=== PATIENT | female | born 1950 | race Caucasian/White ===

== ENCOUNTER 2020-12-17 08:35 | Outpatient (REF) | payer OTHER, SELFPAY ==
--- NOTE | ~2020-12-17 | XR_ITS ---
EXAMINATION: XR SHOULDER, RIGHT XR SHOULDER, LEFT CLINICAL INFORMATION: Shoulder pain COMPARISON: None TECHNIQUE: Each shoulder is imaged in 4 views. There are a total of 8 views. FINDINGS: Right: Normal bony mineralization. No fracture, dislocation, or destructive process. The glenohumeral joint appears normal. There is no visible rotator cuff calcification. There are degenerative changes acromioclavicular joint with joint narrowing and benign mineralization superior side joint capsule. No erosive change. Acromioclavicular alignment normal. There is small spur superior lateral acromium. Degenerative changes are also noted lower cervical spine, greater on right. Left: Normal bony mineralization. No fracture, dislocation, or destructive process. The glenohumeral joint appears normal. There is no visible rotator cuff calcification. There are degenerative changes acromioclavicular joint with joint narrowing and benign mineralization superior side joint capsule. No erosive change. Acromioclavicular alignment normal. There is borderline spur superior lateral acromium. XR/XR shoulder LT min 2V IMPRESSION: 1. Bilateral acromioclavicular osteoarthritic changes, greater on right. 2. Benign-appearing bilateral chondrocalcinosis superior acromioclavicular joint capsule. No erosive change. 3. Normal bilateral glenohumeral joints. 4. No visible rotator cuff calcifications.
--- NOTE | ~2020-12-17 | XR_ITS ---
EXAMINATION: XR SHOULDER, RIGHT XR SHOULDER, LEFT CLINICAL INFORMATION: Shoulder pain COMPARISON: None TECHNIQUE: Each shoulder is imaged in 4 views. There are a total of 8 views. FINDINGS: Right: Normal bony mineralization. No fracture, dislocation, or destructive process. The glenohumeral joint appears normal. There is no visible rotator cuff calcification. There are degenerative changes acromioclavicular joint with joint narrowing and benign mineralization superior side joint capsule. No erosive change. Acromioclavicular alignment normal. There is small spur superior lateral acromium. Degenerative changes are also noted lower cervical spine, greater on right. Left: Normal bony mineralization. No fracture, dislocation, or destructive process. The glenohumeral joint appears normal. There is no visible rotator cuff calcification. There are degenerative changes acromioclavicular joint with joint narrowing and benign mineralization superior side joint capsule. No erosive change. Acromioclavicular alignment normal. There is borderline spur superior lateral acromium. XR/XR shoulder RT min 2V IMPRESSION: 1. Bilateral acromioclavicular osteoarthritic changes, greater on right. 2. Benign-appearing bilateral chondrocalcinosis superior acromioclavicular joint capsule. No erosive change. 3. Normal bilateral glenohumeral joints. 4. No visible rotator cuff calcifications.
[2020-12-17 10:48] LABS: MANUAL DIFF FLAG NO
[2020-12-17 10:53] LABS: Basophils Absolute Auto 0.1 X10*3/uL (0.0-0.2); Basophils Percent Auto 0.9 % (0-2); Eosinophils Absolute Auto 0.2 X10*3/uL (0.0-0.4); Eosinophils Percent Auto 2.6 % (0-4); Hematocrit 41.7 % (37-47); Hemoglobin 13.7 g/dl (12.0-16.0); Imm Gran Abs Auto 0.01 X10*3/uL (0.00-0.03); Imm Gran Pct Auto 0.2 % (0.0-0.4); Lymphocytes Absolute Auto 2.7 X10*3/uL (1.2-4.9); Lymphocytes Percent Auto 45.7 % (20-40); Mean Corpuscular HGB Conc 32.9 g/dl (31.0-35.0); Mean Corpuscular Hemoglobin 28.5 pg (27.0-33.0); Mean Corpuscular Volume 86.7 fL (80-98); Mean Platelet Volume 10.5 fL (9.4-12.3); Monocytes Absolute Auto 0.5 X10*3/uL (0.1-1.2); Monocytes Percent Auto 8.7 % (2-11); Neutrophils Absolute Auto 2.5 X10*3/uL (2.0-8.3); Neutrophils Percent Auto 41.9 % (45-73); Platelet Count 212 X10*3/uL (160-400); Red Blood Count 4.81 X10*6/uL (4.20-5.50); Red Cell Distribution Width 13.1 % (11.0-16.0); White Blood Count 5.9 X10*3/uL (4.8-10.8)
[2020-12-17 11:25] LABS: Alanine Aminotransferase 25 U/L (0-31); Albumin Level 4.5 g/dL (3.5-5.0); Alkaline Phosphatase 104 U/L (39-117); Anion Gap 15 (12-20); Aspartate Amino Transferase 23 U/L (5-31); Bilirubin Total 0.5 mg/dL (0.0-1.0); Blood Urea Nitrogen 21 mg/dL (9-16); C Reactive Protein 0.32 mg/dL (< or = 0.50); Calcium 9.3 mg/dL (8.4-10.2); Carbon Dioxide 28 mmol/L (22-29); Chloride 104 mmol/L (96-108); Estimated Glomerular Filt Rate > 60; Glucose Random 95 mg/dL (60-115); Potassium 4.4 mmol/L (3.3-5.1); Sodium 143 mmol/L (135-145)
[2020-12-17 11:33] LABS: Rheumatoid Factor < 15.0 IU/mL (<15.0)
[2020-12-17 11:37] LABS: Erythrocyte Sedimentation Rate 9 MM/HR (0-20)
[2020-12-19 16:41] LABS: Cyclic Citrullinated Peptide <16 UNITS
[2020-12-20 07:41] LABS: Prot Elec - Albumin 4.2 g/dL (3.8-4.8); Prot Elec - Alpha1 0.3 g/dL (0.2-0.3); Prot Elec - Alpha2 0.9 g/dL (0.5-0.9); Prot Elec - Beta 1 0.5 g/dL (0.4-0.6); Prot Elec - Beta 2 0.3 g/dL (0.2-0.5); Prot Elec - Gamma 0.7 g/dL (0.8-1.7); Prot Elec - Total Protein 6.9 g/dL (6.1-8.1)
[2020-12-20 13:47] LABS: IgA 158 mg/dL (70-320); IgG 703 mg/dL (600-1540); IgM 30 mg/dL (50-300)
== END 2020-12-17 08:36 | disposition home or self-care (01) ==
LOC: HO.LAB 08:35
PROVIDERS: PCP Internal Medicine; Visit Provider Student in an Organized Health Care Education/Training Program
DX: M79.10 Myalgia, unspecified site (principal); M25.511 Pain in right shoulder; M25.512 Pain in left shoulder; M54.5 Low back pain; M25.562 Pain in left knee; M25.561 Pain in right knee; M25.572 Pain in left ankle and joints of left foot; M25.571 Pain in right ankle and joints of right foot; G89.29 Other chronic pain; Z79.899 Other long term (current) drug therapy
CPT/HCPCS: 36415; 73030; 80053; 82550; 82784; 84155; 84165; 85025; 85652; 86140; 86200; 86334; 86431; 99202

== ENCOUNTER → 2020-12-27 08:26 | Outpatient (BNV) | payer OTHER, SELFPAY | PROVIDERS: Referring Provider Student in an Organized Health Care Education/Training Program; Visit Provider Internal Medicine Medical Oncology | DX: D80.1 Nonfamilial hypogammaglobulinemia (principal) | CPT/HCPCS: 99203; 99212; 99213 ==

== ENCOUNTER → 2021-01-14 10:14 | Outpatient (BNVA) | payer OTHER, SELFPAY | PROVIDERS: PCP Internal Medicine; Visit Provider Student in an Organized Health Care Education/Training Program | DX: M79.10 Myalgia, unspecified site (principal) | CPT/HCPCS: 99212 ==

== ENCOUNTER → 2022-01-14 13:21 | Outpatient (BNVA) | payer OTHER, SELFPAY | PROVIDERS: Visit Provider Nurse Practitioner Family | DX: M25.531 Pain in right wrist (principal); M25.561 Pain in right knee; M25.562 Pain in left knee; M79.7 Fibromyalgia; M54.50 Low back pain, unspecified; D80.1 Nonfamilial hypogammaglobulinemia | CPT/HCPCS: 99212 ==

== ENCOUNTER → 2022-09-22 07:51 | Outpatient (BNVA) | payer OTHER, SELFPAY | PROVIDERS: PCP Internal Medicine; Visit Provider Nurse Practitioner Family | DX: M79.7 Fibromyalgia (principal); M25.531 Pain in right wrist; M54.50 Low back pain, unspecified; M25.561 Pain in right knee; M25.562 Pain in left knee; D80.1 Nonfamilial hypogammaglobulinemia | CPT/HCPCS: 99212 ==

== ENCOUNTER 2023-03-17 09:15 | Outpatient (AMB) | payer OTHER, SELFPAY ==
[2023-03-17 09:58] VITALS: BP 126/64; PULSE 72; TEMP 36.4; O2SAT 97; BMI 29.4
--- NOTE | 2023-03-17 09:58 | A.OFFVIS_ITS ---
Intake Vital Signs 03/17/23 09:58 Height 5 ft Weight 150 lb 5.684 oz BMI 29.4 BP 126/64 Blood Pressure Location Rt brachial Position Sitting Pulse 72 Pulse Source Pulse Oximeter Temp 97.5 F Temp Source Skin Pulse Oximetry (%) 97 Intake Visit Reasons: 6 mnts f/u for Intake Note: Pt seen today for follow up. Reports falling often, last February fell and may need surgery. Following with [facility], surgery was recommended. [facility], hand xrays with [facility]. C/o bl knee pain, worse on left. Credit Support Specialist Required: No Accompanied by: Self / Same As Patient Allergies No Known Allergies Allergy (Verified 03/17/23 10:01) Medication List - Last Reconciled 03/17/23 by Jackie Mata MD acetaminophen 500 mg PO Q6H PRN albuterol sulfate 90 mcg/actuation (Ventolin HFA) 2 puffs inhalation Q6H PRN amitriptyline 1 tab PO BEDTIME atorvastatin 80 mg PO DAILY bupropion HCl 100 mg PO BID [id number] 0.5-1-0.5 % 1 drp ophthalmic (eye) Q8-12H PRN celecoxib (Celebrex) 200 mg PO BID diclofenac sodium 1% (Voltaren Arthritis Pain) 2 grams topical QID diclofenac sodium 1% (Arthritis Pain (diclofenac)) 2 grams topical BID ezetimibe (Zetia) 10 mg PO DAILY fluticasone propion-salmeterol 500-50 mcg/dose (Wixela Inhub) 2 inhalations inhalation DAILY fluticasone propionate 50 mcg/actuation 2 sprays intranasal DAILY loratadine 10 mg PO DAILY loratadine (Allergy Relief (loratadine)) 10 mg PO DAILY melatonin 3 mg PO BEDTIME PRN montelukast (Singulair) 10 mg PO BEDTIME montelukast 10 mg PO DAILY olopatadine 0.1% 1 drp ophthalmic (eye) BID olopatadine 0.1% 1 drp ophthalmic (eye) BID omega 4-vem-tlo-fish oil 1,000 mg (120 mg-180 mg) (Fish Oil) 1 cap PO BID omega-3 fatty acids 1,000 mg PO DAILY omeprazole 20 mg PO DAILY paroxetine HCl 40 mg PO DAILY quetiapine (Seroquel) 25 mg PO DAILY quetiapine 25 mg PO BEDTIME tiotropium bromide 1.25 mcg/actuation 2 puffs inhalation DAILY HPI HPI Comments History of Present Illness Details This is a 72-year-old female with fibromyalgia , generalized ost eoarthritis and hypogammaglobulinemia followed by Hematology who presents for follow-up. Patient stated that last month her left knee buckled and she lost her balance and fell forward she hurt her left knee and right hand. She was evaluated by Orthopedics and had a steroid injection which provided little relief and she was told that she has no cartilage and needs surgery. Patient stated that the specifics of the surgery was not discussed she continues to wear the brace and wants to go back to Orthopedics. She stated that she broke 2 bones in her right wrist and was told that she needs surgery, she has an appointment with hand surgeon soon. [facility] Medical History Asthma High cholesterol Carpal tunnel syndrome Surgical History Hx of carpal tunnel repair Hx of tubal ligation Family History Mother Colon cancer Daughter Pulmonary emboli Maternal Grandmother Heart disease Sister Asthma Sister Asthma Father CHF (congestive heart failure) Social History Household Members: None Household Members Other:: daughter Housing: House Are you a primary manager urgent care to a significant other at home: No Do you presently have visiting nurse or other home services: No Alcohol intake: former Patient Tobacco Use Status: Never used Tobacco e-Cigarette/Vaping Use: Never Used service: Yes Current occupational status: retired [place] of [place] [facility] [place]ralgias and Reports joint swelling Physical Exam Vital Signs: Last Vital Signs Temp 97.5 F 03/17/23 09:58 Pulse 72 03/17/23 09:58 BP 126/64 03/17/23 09:58 Pulse Ox 97 03/17/23 09:58 BMI result Body Mass Index 29.4 Const General: cooperative, healthy appearing and comfortable Nutritional Appearance: overweight Orientation/consciousness: patient oriented x3 HEENT Head: Yes normocephalic and Yes atraumatic Mouth: moist mucous membranes Resp Effort & Inspection: normal respiratory effort and able to speak in complete sentences Neuro General: patient oriented x3 Extrem Other: Squaring of bilateral CMC joints Bilateral tenderness at the CMC joint bilaterally Left knee swelling and pain with any range of motion Right knee pain with any range of motion Assessment & Plan Assessment & Plan (1) Joint pain in fingers of right hand: Code(s): M25.541 - Pain in joints of right hand Plan: 72-year-old female with fibromyalgia and generalized osteoarthritis returns for follow-up. Patient fell last month and hurt her right hand and left knee. Was told that she has 2 broken bones in her right hand and she will need surgery. She has an appointment with a surgeon soon. (2) Osteoarthritis of left knee: Code(s): M17.12 - Unilateral primary osteoarthritis, left knee Qualifiers: Osteoarthritis type: primary Qualified Code(s): M17.12 - Unilateral saranya carolyn osteoarthritis, left knee Plan: History of knee injury when she was in the years ago, patient has been having left knee pain and swelling recently, when she fell last month she hurt her left knee. She was evaluated by Orthopedics and had an injection which provided little relief. She was told that she has no cartilage and would need surgery. Patient does not know the specifics of the surgery. She would like to go back to Orthopedics. I recommend re-evaluation by Orthopedics Follow-up in 1 year or sooner if needed Plan I spent 15 minutes reviewing patient's chart, evaluating patient, ordering diagnostic workup, counseling patient and documenting in the chart Coding Level of Care Code Est Pt Level 3 (66076) Diagnoses Joint pain in fingers of right hand M25.541 Primary osteoarthritis of left knee M17.12 Osteoarthritis type: primary
== END 2023-03-17 10:46 | disposition home or self-care (01) ==
PROVIDERS: PCP Internal Medicine; Visit Provider Student in an Organized Health Care Education/Training Program
DX: M25.541 Pain in joints of right hand (principal); M17.12 Unilateral primary osteoarthritis, left knee
CPT/HCPCS: 99213

== ENCOUNTER → 2023-03-17 09:15 | Outpatient (BNVA) | payer OTHER, SELFPAY | PROVIDERS: PCP Internal Medicine; Visit Provider Student in an Organized Health Care Education/Training Program | DX: M17.12 Unilateral primary osteoarthritis, left knee (principal); M25.541 Pain in joints of right hand | CPT/HCPCS: 99212 ==